=== PATIENT | male | born 1980 | race Two or more races ===

== ENCOUNTER 2017-04-21 14:56 | Inpatient (IN) | payer OTHER ==
[2017-04-21 15:05] VITALS: BMI 32.0
--- NOTE | 2017-04-21 15:30 | HP ---
Admission [facility] Chief Complaint: i am here detox from alcohol,cocaine chris heroin abused,mmtp 110 mgs/day,last medicated today athma Allergies/Adverse Reactions: Allergies Allergy/AdvReac Type Severity Reaction Status Date / Time No Known Allergies Allergy Verified 04/21/17 15:47 History of Present Illness: this 36 years old male with alcohol,ocaine dependence,heroin abused,mmtp last medicated today,last treatment jacbi 08/11 not completed asthma hepatits c nicotine dependence weight loss longest period of sobriety 3 years - Ebola screening Have you traveled outside of the country in the last 21 days: No Have you had contact with anyone from an Ebola affected area: No Have you been sick,other than usual withdrawal symptoms: No Do you have a fever: No - Review of Systems Constitutional: Loss of Appetite, Malaise, Night Sweats, Changes in sleep, Weakness, Unintentional Wgt. Loss EENT: reports: Nose Congestion Respiratory: reports: No Symptoms reported, Other (asthma) Cardiac: reports: Palpitations GI: reports: Diarrhea, Nausea, Vomiting, Abdominal cramping : reports: No Symptoms Reported Musculoskeletal: reports: Back Pain, Muscle Pain Integumentary: reports: No Symptoms Reported, Dryness Neuro: reports: Headache, Tremors Endocrine: reports: No Symptoms Reported Hematology: reports: No Symptoms Reported Psychiatric: reports: No Sypmtoms Reported, Judgement Intact, Mood/Affect Appropiate, Orientated x3 Patient History - Patient Medical History Hx Asthma: Yes (Pt is on MDI) Hx Chronic Obstructive Pulmonary Disease (COPD): No Hx Cancer: No Hx Cardiac Disorders: No Hx Congestive Heart Failure: No Hx Hypertension: No Hx Hypercholesterolemia: No Hx Pacemaker: No HX Cerebrovascular Accident: No Hx Seizures: No Hx Dementia: No Hx Diabetes: No Hx Gastrointestinal Disorders: No Hx Liver Disease: No Hx Genitourinary Disorders: No Hx Sexually Transmitted Disorders: No Hx Renal Disease (ESRD): No Hx Thyroid Disease: No Hx Human Immunodeficiency Virus (HIV): No (NEGATIVE HX) Hx Hepatitis C: Yes (under the care of pmd at [facility]) Hx Depression: No Hx Suicide Attempt: No (DENIES) Hx Bipolar Disorder: No Hx Schizophrenia: No Other Medical History: no suicidal,no homicidal - Patient Surgical History Past Surgical History: No - PPD History Previous Implant?: Yes Documented Results: Negative w/o proof Date: 07/25/14 Results: 0 mm PPD to be Administered?: Yes - Smoking Cessation Smoking history: Current every day smoker Have you smoked in the past 12 months: Yes Aproximately how many cigarettes per day: 20 Hx Chewing Tobacco Use: No Initiated information on smoking cessation: Yes 'Breaking Loose' booklet given: 04/21/17 - Substance & Tx. History Hx Alcohol Use: Yes Hx Substance Use: Yes Substance Use Type: Alcohol, Cocaine, Heroin Hx Substance Use Treatment: Yes (makenzie 08/11 not completed) - Substances Abused Alcohol Route: Oral Frequency: Daily Amount used: 1/5th of vodka/12 of 24 ozs of beer Age of first use: 11 Date of Last Use: 04/21/17 Cocaine Route: Injection Frequency: 3-6 times per week Amount used: 100$ Age of first use: 11 Date of Last Use: 04/19/17 Heroin Route: Injection Frequency: Daily Amount used: 8 bags Age of first use: 11 Date of Last Use: 04/20/17 Family Disease History - Family Disease History Family History: Denies Admission Physical Exam [facility] - Vital Signs Vital Signs: Vital Signs - 24 hr 04/21/17 15:00 Temperature 97.9 F Pulse Rate 75 Respiratory 16 Rate Blood Pressure 118/85 - Physical General Appearance: Yes: Moderate Distress, Tremorous, Irritable, Sweating, Anxious HEENTM: Yes: Normal ENT Inspection, RADHA, Pharynx Normal, Microcephalic Respiratory: Yes: Normal Breath Sounds, No Respiratory Distress Neck: Yes: Within Normal Limits, Supple, Trachea in good position Breast: Yes: Within Normal Limits Cardiology: Yes: Within Normal Limits, Regular Rhythm, Regular Rate, S1, S2 Abdominal: Yes: Within Normal Limits, Normal Bowel Sounds, Non Tender, Soft Genitourinary: Yes: Within Normal Limits Back: Yes: Within Normal Limits, Normal Inspection, Muscle Spasm Musculoskeletal: Yes: Within Normal Limits, Back pain, Muscle Pain Extremities: Yes: Within Normal Limits, Normal Range of Motion, Tremors Neurological: Yes: supply chain generalist II-XII NML intact, Fully Oriented, Alert, Motor Strength 5/5 Integumentary: Yes: Dry, Track [place] Lymphatic: Yes: Within Normal Limits - Diagnostic (1) Alcohol dependence with uncomplicated withdrawal Current Visit: Yes Status: Acute (2) Cocaine dependence Current Visit: No Status: Acute (3) Heroin dependence Current Visit: Yes Status: Acute (4) Methadone maintenance therapy patient Current Visit: Yes Status: Acute (5) Asthma Current Visit: No Status: Chronic (6) Weight loss Current Visit: Yes Status: Acute (7) Hepatitis C Current Visit: Yes Status: Acute (8) Nicotine dependence Current Visit: Yes Status: Acute Cleared for Admission S - Detox or Rehab [facility] Level of Care: Medically Managed Detox Regimen/Protocol: Librium [facility] Breath Alcohol Content Breath Alcohol Content: 0.011 Urine Drug Screen - Results Drug Screen Negative: No Urine Drug Screen Results: ARON-Cocaine, OPI-Opiates, BZO-Benzodiazepines, MTD- Methadone
[2017-04-21] MEDS ORDERED: MAGNESIUM CITRATE 300 ML BOTTLE PO PRN (15:46)
[2017-04-21] MEDS ORDERED: IBUPROFEN 400 MG TABLET (FP) PO PRN (15:46)
[2017-04-21] MEDS ORDERED: ACETAMINOPHEN 325 MG TABLET (FP) PO PRN (15:46)
[2017-04-21] MEDS ORDERED: chlordiazePOXIDE HCL 25 MG CAPSULE PO PRN (15:46)
[2017-04-21] MEDS ORDERED: P-EPHED 60MG/TRIPROLIDI 2.5MG TABLET PO PRN (15:46)
[2017-04-21] MEDS ORDERED: hydrOXYzine PAMOATE 50 MG CAPSULE (FP) PO PRN (15:46)
[2017-04-21] MEDS ORDERED: MAGNESIUM HYDROX 2400MG/30ML ORAL SUSPENSION 30 ML CUP PO PRN (15:46)
[2017-04-21] MEDS ORDERED: LOPERAMIDE HCL 2 MG CAPSULE PO PRN (15:46)
[2017-04-21] MEDS ORDERED: MENTHOL/PHENOL 1 EACH UD MM PRN (15:46)
[2017-04-21] MEDS ORDERED: MAG HYDROX/AL HYDROX/SIMETH 30 ML UNIT-DOSE CUP PO PRN (15:46)
[2017-04-21] MEDS ORDERED: guaiFENesin/D-METHORPHAN HB 10 ML UNIT-DOSE CUPS PO PRN (15:46)
[2017-04-21] MEDS ORDERED: ALBUTEROL SO4 18 GM HFA INHALER IH PRN (15:51)
[2017-04-21] MEDS: chlordiazePOXIDE HCL 25 MG CAPSULE PO SCH ×2 (17:24→22:27)
[2017-04-21] MEDS: BUDESONIDE/FORMETEROL FUMARATE 80/4.5 mcg INHALER IH SCH ×2 (17:27→22:30)
[2017-04-21] MEDS: NICOTINE 21 MG/24 HOURS TOPICAL PATCH TD SCH (17:27)
[2017-04-21] MEDS ORDERED: chlordiazePOXIDE HCL 25 MG CAPSULE PO ONE (18:00)
[2017-04-21 20:05] LABS: URINE APPEARANCE CLEAR; URINE BILIRUBIN NEGATIVE (NEGATIVE); URINE BLOOD NEGATIVE (NEGATIVE); URINE COLOR YELLOW; URINE GLUCOSE (UA) NEGATIVE (NEGATIVE); URINE KETONE NEGATIVE (NEGATIVE); URINE NITRITE NEGATIVE (NEGATIVE); URINE PROTEIN NEGATIVE (NEGATIVE); URINE UROBILINOGEN NEGATIVE mg/dL (0.2-1.0)
[2017-04-21 22:00] LABS: URINE LEUK ESTERASE Negative (NEGATIVE)
[2017-04-21] MEDS: THIAMINE HCL 100 MG TABLET (FP) PO SCH (22:27)
[2017-04-22] MEDS ORDERED: METHADONE HCL 10 MG TABLET ONE (05:28)
[2017-04-22] MEDS ORDERED: METHADONE HCL 40 MG DISPERSABLE TABLET ONE (05:28)
[2017-04-22] MEDS: chlordiazePOXIDE HCL 25 MG CAPSULE PO SCH ×4 (05:40→22:07)
[2017-04-22] MEDS ORDERED: METHADONE HCL 10 MG TABLET (FOR DETOX USE ONLY) PO ONE (06:00)
[2017-04-22] MEDS ORDERED: METHADONE 80 MG, METHADONE 30 MG PO ONE (06:00)
[2017-04-22] MEDS: BUDESONIDE/FORMETEROL FUMARATE 80/4.5 mcg INHALER IH SCH ×2 (10:03→22:07)
[2017-04-22] MEDS: PRENATAL VITAMINS W/ FOLIC ACID TABLET (FP) PO SCH (10:03)
[2017-04-22] MEDS: NICOTINE POLACRILEX 2 MG GUM BUC PRN (10:03)
[2017-04-22] MEDS: NICOTINE 21 MG/24 HOURS TOPICAL PATCH TD SCH (10:03)
[2017-04-22 10:11] LABS: MCH 28.9 pg (25.7-33.7); MCHC 32.2 g/dl (32.0-35.9); MEAN CELL VOLUME 89.6 fl (80-96); MEAN PLT VOLUME 9.1 fl (7.5-11.1); PLATELET COUNT 142 K/MM3 (134-434); RDW 13.4 % (11.9-15.9); WHITE BLOOD COUNT 5.4 K/mm3 (4.0-10.0)
[2017-04-22 10:19] LABS: ALBUMIN 3.3 g/dl (3.4-5.0); ANION GAP 7 (8-16); CALCIUM 8.2 mg/dL (8.5-10.1); CO2 28 mmol/L (21-32); GLUCOSE,RANDOM 110 mg/dL (74-106); SGOT/AST 33 U/L (15-37); SGPT/ALT 54 U/L (12-78)
[2017-04-22 10:21] LABS: ALK PHOS 86 U/L (45-117); BILIRUBIN,TOTAL 0.4 mg/dL (0.2-1.0); TOT PROT 6.7 g/dl (6.4-8.2)
[2017-04-22 11:46] LABS: HIV 1 & 2 AB NEGATIVE; HIV 1 AGp24 NEGATIVE
--- NOTE | 2017-04-22 12:49 | PN ---
S CIWA - CIWA Score Nausea/Vomitin Muscle Tremors: 4-Moderate,w/Arms Extend Anxiety: 4-Mod. Anxious/Guarded Agitation: 4-Moderately Restless Paroxysmal Sweats: 5 Orientation: 0-Oriented Tacttile Disturbances: 1-Very Mild Itch/Numbness Auditory Disturbances: 0-None Visual Disturbances: 0-None Headache: 1-Very Mild CIWA-Ar Total Score: 22 BHS Progress Note (SOAP) Subjective: Tremor, chills, sweating, diarrhea, heartburn, interrupted sleep Objective: 04/22/17 12:48 Last Vital Signs Temp Pulse Resp BP Pulse Ox 98.6 F 86 20 117/73 04/22/17 09:47 04/22/17 09:47 04/22/17 09:47 04/22/17 09:47 Laboratory Tests 04/21/17 04/22/17 04/22/17 19:00 07:40 07:40 WBC 5.4 RBC 4.68 Hgb 13.5 Hct 41.9 MCV 89.6 MCH 28.9 MCHC 32.2 RDW 13.4 D Plt Count 142 MPV 9.1 Manual Slide Review No Result Required. Sodium Potassium Chloride Carbon Dioxide Anion Gap BUN Creatinine Creat Clearance w eGFR Random Glucose Calcium Total Bilirubin AST ALT Alkaline Phosphatase Total Protein Albumin Urine Color Yellow Urine Appearance Clear Urine pH 5.0 Ur Specific [place] 1.023 Urine Protein Negative Urine Glucose (UA) Negative Urine Ketones Negative Urine Blood Negative Urine Nitrite Negative Urine Bilirubin Negative Urine Urobilinogen Negative Ur Leukocyte Esterase Negative RPR Titer HIV 1&2 Antibody Screen Negative HIV P24 Antigen Negative 04/22/17 04/22/17 07:40 07:40 WBC RBC Hgb Hct MCV MCH MCHC RDW Plt Count MPV Manual Slide Review Sodium 139 Potassium 3.9 Chloride 104 Carbon Dioxide 28 Anion Gap 7 L BUN 16 Creatinine 1.0 Creat Clearance w eGFR > 60 Random Glucose 110 H D Calcium 8.2 L Total Bilirubin 0.4 D AST 33 D ALT 54 D Alkaline Phosphatase 86 D Total Protein 6.7 Albumin 3.3 L Urine Color Urine Appearance Urine pH Ur Specific [place] Urine Protein Urine Glucose (UA) Urine Ketones Urine Blood Urine Nitrite Urine Bilirubin Urine Urobilinogen Ur Leukocyte Esterase RPR Titer Nonreactive HIV 1&2 Antibody Screen HIV P24 Antigen Labs noted Assessment: 04/22/17 12:48 Withdrawal symptoms Plan: Continue detox Encouraged to drink lots of water
[2017-04-22] MEDS: THIAMINE HCL 100 MG TABLET (FP) PO SCH (22:07)
[2017-04-23] MEDS: chlordiazePOXIDE HCL 25 MG CAPSULE PO SCH ×2 (05:37→10:07)
[2017-04-23] MEDS ORDERED: METHADONE HCL 10 MG TABLET PO ONE (08:36)
[2017-04-23] MEDS ORDERED: METHADONE 80 MG, METHADONE 30 MG PO ONE (08:47)
[2017-04-23] MEDS ORDERED: METHADONE HCL 10 MG TABLET ONE (09:10)
[2017-04-23] MEDS ORDERED: METHADONE HCL 40 MG DISPERSABLE TABLET ONE (09:11)
[2017-04-23] MEDS: NICOTINE 21 MG/24 HOURS TOPICAL PATCH TD SCH (09:31)
[2017-04-23] MEDS: PRENATAL VITAMINS W/ FOLIC ACID TABLET (FP) PO SCH (09:31)
[2017-04-23] MEDS: NICOTINE POLACRILEX 2 MG GUM BUC PRN (09:32)
[2017-04-23] MEDS: BUDESONIDE/FORMETEROL FUMARATE 80/4.5 mcg INHALER IH SCH ×2 (10:07→22:17)
--- NOTE | 2017-04-23 11:07 | PN ---
[facility] CIWA - CIWA Score Nausea/Vomitin-No Nausea/No Vomiting Muscle Tremors: 4-Moderate,w/Arms Extend Anxiety: 4-Mod. Anxious/Guarded Agitation: 4-Moderately Restless Paroxysmal Sweats: 1-Minimal Palms Moist Orientation: 0-Oriented Tacttile Disturbances: 3-Moderate Itch/Numb/Burn Auditory Disturbances: 0-None Visual Disturbances: 0-None Headache: 0-None Present CIWA-Ar Total Score: 16 S Progress Note (SOAP) Subjective: ANXIETY,SWEATS,IRRITABILITY,TREMORS, CHILLS,INTERMITTENT SLEEP. Objective: 04/23/17 11:06 Vital Signs Temperature 98.3 F 04/23/17 09:02 Pulse Rate 87 04/23/17 09:02 Respiratory Rate 16 04/23/17 09:02 Blood Pressure 136/75 04/23/17 09:02 O2 Sat by Pulse Oximetry (%) Laboratory Last Values WBC 5.4 K/mm3 (4.0-10.0) 04/22/17 07:40 RBC 4.68 M/mm3 (4.00-5.60) 04/22/17 07:40 Hgb 13.5 GM/dL (11.7-16.9) 04/22/17 07:40 Hct 41.9 % (35.4-49) 04/22/17 07:40 MCV 89.6 fl (80-96) 04/22/17 07:40 MCH 28.9 pg (25.7-33.7) 04/22/17 07:40 MCHC 32.2 g/dl (32.0-35.9) 04/22/17 07:40 RDW 13.4 % (11.9-15.9) D 04/22/17 07:40 Plt Count 142 K/MM3 (134-434) 04/22/17 07:40 MPV 9.1 fl (7.5-11.1) 04/22/17 07:40 Manual Slide Review No Result Required. 04/22/17 07:40 Sodium 139 mmol/L (136-145) 04/22/17 07:40 Potassium 3.9 mmol/L (3.5-5.1) 04/22/17 07:40 Chloride 104 mmol/L (98-107) 04/22/17 07:40 Carbon Dioxide 28 mmol/L (21-32) 04/22/17 07:40 Anion Gap 7 (8-16) L 04/22/17 07:40 BUN 16 mg/dL (7-18) 04/22/17 07:40 Creatinine 1.0 mg/dL (0.7-1.3) 04/22/17 07:40 Creat Clearance w eGFR > 60 (>60) 04/22/17 07:40 Random Glucose 110 mg/dL (74-106) H D 04/22/17 07:40 Calcium 8.2 mg/dL (8.5-10.1) L 04/22/17 07:40 Total Bilirubin 0.4 mg/dL (0.2-1.0) D 04/22/17 07:40 AST 33 U/L (15-37) D 04/22/17 07:40 ALT 54 U/L (12-78) D 04/22/17 07:40 Alkaline Phosphatase 86 U/L (45-117) D 04/22/17 07:40 Total Protein 6.7 g/dl (6.4-8.2) 04/22/17 07:40 Albumin 3.3 g/dl (3.4-5.0) L 04/22/17 07:40 Urine Color Yellow 04/21/17 19:00 Urine Appearance Clear 04/21/17 19:00 Urine pH 5.0 (5.0-8.0) 04/21/17 19:00 Ur Specific [place] 1.023 (1.001-1.035) 04/21/17 19:00 Urine Protein Negative (NEGATIVE) 04/21/17 19:00 Urine Glucose (UA) Negative (NEGATIVE) 04/21/17 19:00 Urine Ketones Negative (NEGATIVE) 04/21/17 19:00 Urine Blood Negative (NEGATIVE) 04/21/17 19:00 Urine Nitrite Negative (NEGATIVE) 04/21/17 19:00 Urine Bilirubin Negative (NEGATIVE) 04/21/17 19:00 Urine Urobilinogen Negative mg/dL (0.2-1.0) 04/21/17 19:00 Ur Leukocyte Esterase Negative (NEGATIVE) 04/21/17 19:00 RPR Titer Nonreactive (NONREACTIVE) 04/22/17 07:40 HIV 1&2 Antibody Screen Negative 04/22/17 07:40 HIV P24 Antigen Negative 11/26/17 07:40 Assessment: 04/23/17 11:06 WITHDRAWAL SX Plan: CONTINUE DETOX
[2017-04-23] MEDS: chlordiazePOXIDE 5 MG CAPSULE PO SCH ×2 (16:57→22:16)
[2017-04-23] MEDS ORDERED: RANITIDINE HCL 150 MG TABLET (FP) PO ONE (17:45)
[2017-04-23] MEDS: THIAMINE HCL 100 MG TABLET (FP) PO SCH (22:16)
--- NOTE | 2017-04-24 01:03 | EKG ---
Test Reason : Blood Pressure : / mmHG Vent. Rate : 073 BPM Atrial Rate : 073 BPM P-R Int : 118 ms QRS Dur : 092 ms QT Int : 394 ms P-R-T Axes : 047 057 042 degrees QTc Int : 434 ms NORMAL SINUS RHYTHM NORMAL ECG NO PREVIOUS ECGS AVAILABLE Confirmed by LYDIA RITTER, BURTON ([id number]) on 04/24/2017 1:03:06 AM Referred By: MARIA DE JESUS LEMUS Confirmed By:BURTON FREEMAN MD
[2017-04-24] MEDS ORDERED: METHADONE HCL 40 MG DISPERSABLE TABLET ONE (04:07)
[2017-04-24] MEDS ORDERED: METHADONE HCL 10 MG TABLET ONE (04:07)
[2017-04-24] MEDS: chlordiazePOXIDE 5 MG CAPSULE PO SCH ×2 (05:28→10:22)
[2017-04-24] MEDS ORDERED: METHADONE 80 MG, METHADONE 30 MG PO SCH (06:00)
[2017-04-24] MEDS ORDERED: METHADONE HCL 10 MG TABLET PO SCH (06:00)
[2017-04-24] MEDS ORDERED: RANITIDINE HCL 150 MG TABLET (FP) PO SCH (10:00)
[2017-04-24] MEDS: PRENATAL VITAMINS W/ FOLIC ACID TABLET (FP) PO SCH (10:22)
[2017-04-24] MEDS: NICOTINE 21 MG/24 HOURS TOPICAL PATCH TD SCH (10:22)
[2017-04-24] MEDS: BUDESONIDE/FORMETEROL FUMARATE 80/4.5 mcg INHALER IH SCH (10:23)
[2017-04-24] MEDS: NICOTINE POLACRILEX 2 MG GUM BUC PRN (10:25)
--- NOTE | 2017-04-24 10:42 | PN ---
[facility] Progress Note (SOAP) Subjective: ANXIETY,SLIGHT TREMORS,FATIGUE. Objective: 04/24/17 10:41 Vital Signs Temperature 97.8 F 04/24/17 09:07 Pulse Rate 85 04/24/17 09:07 Respiratory Rate 18 04/24/17 09:07 Blood Pressure 120/77 04/24/17 09:07 O2 Sat by Pulse Oximetry (%) Laboratory Last Values WBC 5.4 K/mm3 (4.0-10.0) 04/22/17 07:40 RBC 4.68 M/mm3 (4.00-5.60) 04/22/17 07:40 Hgb 13.5 GM/dL (11.7-16.9) 04/22/17 07:40 Hct 41.9 % (35.4-49) 04/22/17 07:40 MCV 89.6 fl (80-96) 04/22/17 07:40 MCH 28.9 pg (25.7-33.7) 04/22/17 07:40 MCHC 32.2 g/dl (32.0-35.9) 04/22/17 07:40 RDW 13.4 % (11.9-15.9) D 04/22/17 07:40 Plt Count 142 K/MM3 (134-434) 04/22/17 07:40 MPV 9.1 fl (7.5-11.1) 04/22/17 07:40 Manual Slide Review No Result Required. 04/22/17 07:40 Sodium 139 mmol/L (136-145) 04/22/17 07:40 Potassium 3.9 mmol/L (3.5-5.1) 04/22/17 07:40 Chloride 104 mmol/L (98-107) 04/22/17 07:40 Carbon Dioxide 28 mmol/L (21-32) 04/22/17 07:40 Anion Gap 7 (8-16) L 04/22/17 07:40 BUN 16 mg/dL (7-18) 04/22/17 07:40 Creatinine 1.0 mg/dL (0.7-1.3) 04/22/17 07:40 Creat Clearance w eGFR > 60 (>60) 04/22/17 07:40 Random Glucose 110 mg/dL (74-106) H D 04/22/17 07:40 Calcium 8.2 mg/dL (8.5-10.1) L 04/22/17 07:40 Total Bilirubin 0.4 mg/dL (0.2-1.0) D 04/22/17 07:40 AST 33 U/L (15-37) D 04/22/17 07:40 ALT 54 U/L (12-78) D 04/22/17 07:40 Alkaline Phosphatase 86 U/L (45-117) D 04/22/17 07:40 Total Protein 6.7 g/dl (6.4-8.2) 04/22/17 07:40 Albumin 3.3 g/dl (3.4-5.0) L 04/22/17 07:40 Urine Color Yellow 04/21/17 19:00 Urine Appearance Clear 04/21/17 19:00 Urine pH 5.0 (5.0-8.0) 04/21/17 19:00 Ur Specific [place] 1.023 (1.001-1.035) 04/21/17 19:00 Urine Protein Negative (NEGATIVE) 04/21/17 19:00 Urine Glucose (UA) Negative (NEGATIVE) 04/21/17 19:00 Urine Ketones Negative (NEGATIVE) 04/21/17 19:00 Urine Blood Negative (NEGATIVE) 04/21/17 19:00 Urine Nitrite Negative (NEGATIVE) 04/21/17 19:00 Urine Bilirubin Negative (NEGATIVE) 04/21/17 19:00 Urine Urobilinogen Negative mg/dL (0.2-1.0) 04/21/17 19:00 Ur Leukocyte Esterase Negative (NEGATIVE) 04/21/17 19:00 RPR Titer Nonreactive (NONREACTIVE) 04/22/17 07:40 HIV 1&2 Antibody Screen Negative 04/22/17 07:40 HIV P24 Antigen Negative 04/22/17 07:40 Assessment: 04/24/17 10:42 WITHDRAWAL SX Plan: CONTINUE DETOX
--- NOTE | 2017-04-24 12:44 | DS ---
[facility] Detox Discharge Summary Admission Date: 04/21/17 Discharge Date: 04/24/17 - History Present History: Alcohol Dependence, Cocaine Dependence, MMTP Additional Comments: DECLINED TO CONTINUE WITH DETOX. ALERT O X 3. NAD. PT WILL FOLLOW UP AT HIS MMTP /PMD FOR AFTERCARE. Pertinent Past History: ASTHMA HEP C - Physical Exam Results Vital Signs: Vital Signs Temperature 97.8 F 04/24/17 09:07 Pulse Rate 85 04/24/17 09:07 Respiratory Rate 18 04/24/17 09:07 Blood Pressure 120/77 04/24/17 09:07 O2 Sat by Pulse Oximetry (%) Pertinent Admission Physical Exam Findings: WITHDRAWAL SX Laboratory Last Values WBC 5.4 K/mm3 (4.0-10.0) 04/22/17 07:40 RBC 4.68 M/mm3 (4.00-5.60) 04/22/17 07:40 Hgb 13.5 GM/dL (11.7-16.9) 04/22/17 07:40 Hct 41.9 % (35.4-49) 04/22/17 07:40 MCV 89.6 fl (80-96) 04/22/17 07:40 MCH 28.9 pg (25.7-33.7) 04/22/17 07:40 MCHC 32.2 g/dl (32.0-35.9) 04/22/17 07:40 RDW 13.4 % (11.9-15.9) D 04/22/17 07:40 Plt Count 142 K/MM3 (134-434) 04/22/17 07:40 MPV 9.1 fl (7.5-11.1) 04/22/17 07:40 Manual Slide Review No Result Required. 04/22/17 07:40 Sodium 139 mmol/L (136-145) 04/22/17 07:40 Potassium 3.9 mmol/L (3.5-5.1) 04/22/17 07:40 Chloride 104 mmol/L (98-107) 04/22/17 07:40 Carbon Dioxide 28 mmol/L (21-32) 04/22/17 07:40 Anion Gap 7 (8-16) L 04/22/17 07:40 BUN 16 mg/dL (7-18) 04/22/17 07:40 Creatinine 1.0 mg/dL (0.7-1.3) 04/22/17 07:40 Creat Clearance w eGFR > 60 (>60) 04/22/17 07:40 Random Glucose 110 mg/dL (74-106) H D 04/22/17 07:40 Calcium 8.2 mg/dL (8.5-10.1) L 04/22/17 07:40 Total Bilirubin 0.4 mg/dL (0.2-1.0) D 04/22/17 07:40 AST 33 U/L (15-37) D 04/22/17 07:40 ALT 54 U/L (12-78) D 04/22/17 07:40 Alkaline Phosphatase 86 U/L (45-117) D 04/22/17 07:40 Total Protein 6.7 g/dl (6.4-8.2) 04/22/17 07:40 Albumin 3.3 g/dl (3.4-5.0) L 04/22/17 07:40 Urine Color Yellow 04/21/17 19:00 Urine Appearance Clear 04/21/17 19:00 Urine pH 5.0 (5.0-8.0) 04/21/17 19:00 Ur Specific [place] 1.023 (1.001-1.035) 04/21/17 19:00 Urine Protein Negative (NEGATIVE) 04/21/17 19:00 Urine Glucose (UA) Negative (NEGATIVE) 04/21/17 19:00 Urine Ketones Negative (NEGATIVE) 04/21/17 19:00 Urine Blood Negative (NEGATIVE) 04/21/17 19:00 Urine Nitrite Negative (NEGATIVE) 04/21/17 19:00 Urine Bilirubin Negative (NEGATIVE) 04/21/17 19:00 Urine Urobilinogen Negative mg/dL (0.2-1.0) 04/21/17 19:00 Ur Leukocyte Esterase Negative (NEGATIVE) 04/21/17 19:00 RPR Titer Nonreactive (NONREACTIVE) 04/22/17 07:40 HIV 1&2 Antibody Screen Negative 04/22/17 07:40 HIV P24 Antigen Negative 04/22/17 07:40 - Treatment Hospital Course: Discharged Condition Good - Medication Discharge Medications: Ambulatory Orders Albuterol Sulfate Inhaler - [Ventolin HFA Inhaler -] 2 inh PO Q4H PRN 07/23/14 - Diagnosis (1) Alcohol dependence with uncomplicated withdrawal Status: Acute (2) Hepatitis C Status: Chronic Qualifiers: Viral hepatitis chronicity: chronic (3) Asthma Status: Chronic Qualifiers: Asthma severity: mild Asthma persistence: unspecified Asthma complication type: uncomplicated Qualified Code(s): J45.909 - Unspecified asthma, uncomplicated (4) Methadone maintenance therapy patient Status: Chronic (5) Nicotine dependence Status: Acute Qualifiers: Nicotine product type: cigarettes Substance use status: in withdrawal Qualified Code(s): F17.213 - Nicotine dependence, cigarettes, with withdrawal (6) Cocaine dependence Status: Acute Qualifiers: Substance use status: uncomplicated Qualified Code(s): F14.20 - Cocaine dependence, uncomplicated - AMA Did Patient Leave Against Medical Advice: Yes
[2017-04-24 13:04] VITALS: BP 104/62; PULSE 62; TEMP 97.9
[2017-04-24] MEDS ORDERED: chlordiazePOXIDE HCL 10 MG CAPSULE PO SCH (17:00)
== END 2017-04-24 12:52 | disposition left against medical advice (07) | DRG 770 ==
LOC: YASAS 14:56 → Y3N 15:47
PROVIDERS: ADMIT Internal Medicine; ATTEND Internal Medicine
PROC: HZ2ZZZZ Detoxification Services for Substance Abuse Treatment (ICD-10-PCS; principal; 2017-04-21)
DX: F10.230 Alcohol dependence with withdrawal, uncomplicated (principal); F11.20 Opioid dependence, uncomplicated; F14.20 Cocaine dependence, uncomplicated; F17.213 Nicotine dependence, cigarettes, with withdrawal; J45.30 Mild persistent asthma, uncomplicated; B18.2 Chronic viral hepatitis C; Z87.898 Personal history of other specified conditions
CPT/HCPCS: 36415; 80053; 81003; 85027; 86593; 87389; 93005; 93010